=== PATIENT | male | born 1985 | race Caucasian/White ===

== ENCOUNTER → 2018-09-23 | Outpatient (CLI) | payer OTHER | LOC: M.CRD 14:55 → EDSEX 15:00 | DX: N52.9 Male erectile dysfunction, unspecified (principal) ==

== ENCOUNTER 2019-04-23 20:00 | Emergency (ER) | payer OTHER ==
[~2019-04-23] VITALS: Ht 175.3 cm; Wt 102.1 kg
[2019-04-23] MEDS ORDERED: CELEXA20 MG PO (20:08)
[2019-04-23] MEDS ORDERED: SLEEPING PILL (20:09)
[2019-04-23] MEDS ORDERED: NORCO 5-325 TA1 EAC1 PO (21:27)
[2019-04-23] MEDS ORDERED: KEFLEX500 M1 PO (21:31)
[2019-04-23 21:40] VITALS: BP 135/90
== END 2019-04-23 21:40 | disposition home or self-care (01) ==
LOC: M.ERS 20:00
DX: S63.501A Unspecified sprain of right wrist, initial encounter (principal); S60.811A Abrasion of right wrist, initial encounter; W01.0XXA Fall on same level from slipping, tripping and stumbling without subsequent striking against object, initial encounter; Y93.89 Activity, other specified; Y92.89 Other specified places as the place of occurrence of the external cause; Y99.8 Other external cause status